=== PATIENT | female | born 1990 | race Caucasian/White ===

== ENCOUNTER 2022-02-24 08:40 | Outpatient (CLI) | payer BC ==
[2022-02-24] MEDS ORDERED: Iopamidol 300 61% 50 ML VIAL FS ONE (11:52)
== END 2022-02-24 08:41 | disposition home or self-care (01) ==
LOC: CSHRAD 08:40
PROVIDERS: ATTEND Obstetrics & Gynecology
DX: N97.1 Female infertility of tubal origin (principal)
CPT/HCPCS: 58340; 74740; Q9967

== ENCOUNTER 2022-12-08 16:45 | Inpatient (IN) | payer BC ==
[~2022-12-08 16:45] MED LIST: Bupivacaine 0.25% HCL 30 ML VIAL ONE
[2022-12-08] MEDS ORDERED: Promethazine HCl 25 MG/ML VIAL IM PRN (18:59)
[2022-12-08] MEDS ORDERED: Docusate 100 MG CAP PO PRN (18:59)
[2022-12-08] MEDS ORDERED: Carboprost 250 MCG/ML AMP IM PRN (18:59)
[2022-12-08] MEDS ORDERED: Acetaminophen 500 MG TAB PO PRN (18:59)
[2022-12-08] MEDS ORDERED: Butorphanol Tartrate 1 MG/ML VIAL SLOW IVP PRN (18:59)
[2022-12-08] MEDS ORDERED: hydrALAZINE 20 MG/ML VIAL SLOW IVP PRN (18:59)
[2022-12-08] MEDS ORDERED: Ondansetron PF 4 MG/2 ML Vial IVP PRN (18:59)
[2022-12-08] MEDS ORDERED: Zolpidem Tartrate 5 MG TAB PO PRN (18:59)
[2022-12-08] MEDS ORDERED: HYDROcodone/Acetaminophen 5/325 mg Tablet PO PRN ×2 (18:59)
[2022-12-08] MEDS ORDERED: Lidocaine 1% (PF) 30 ML VIAL SC PRN (18:59)
[2022-12-08] MEDS ORDERED: Misoprostol 200 MCG TAB PR PRN (18:59)
[2022-12-08] MEDS ORDERED: Ibuprofen 800 MG TAB PO PRN (18:59)
[2022-12-08] MEDS ORDERED: NS w/ Oxytocin 30 units 500 ML IV SCH ×3 (18:59)
[2022-12-08] MEDS ORDERED: Diphenoxylate HCl/Atropine Tablet PO PRN ×2 (18:59)
[2022-12-08 19:06] VITALS: BMI 31.9
[2022-12-08] MEDS: Lactated Ringer's 1,000 ML IV SCH (19:23)
[2022-12-08] MEDS ORDERED: Misoprostol 100 MCG TAB ONE (19:31)
[2022-12-08] MEDS: Misoprostol 100 MCG TAB VAG SCH (19:35)
[2022-12-08 20:06] LABS: Hematocrit 40.7 % (34.9-44.5); Hemoglobin 13.8 g/dL (12.0-15.5); Mean Corpuscular HGB CONC 33.9 g/dL (32.0-36.0); Mean Corpuscular Hemoglobin 29.7 pg (27.0-33.0); Mean Corpuscular Volume 87.7 fl (81.6-98.3); Mean Platelet Volume 11.8 fl (7.4-10.4); Platelet Count 224 10x3/uL (150-450); RBC Distribution Width 13.2 % (11.5-14.5); Red Blood Cell (RBC) Count 4.64 10x6/uL (3.90-5.03); White Blood Cell (WBC) Count 11.8 10x3/uL (3.5-10.5)
[2022-12-08 20:37] LABS: HBSAg Index 0.15 S/CO (0-0.99); HIV (1/2) Antibody/Antigen Non-Reactive (NonReactive); HIV 1/2 INDEX 0.05 S/CO (<1.00); Hep B Surf Ag - L&D Non-Reactive S/CO (NonReactive)
[2022-12-08 20:38] LABS: Syphilis Antibody Nonreactive (Nonreactive); Syphilis Antibody Index 0.04 S/CO (<1.00 Non-Reactive)
[2022-12-09] MEDS: Lactated Ringer's 1,000 ML IV SCH ×2 (00:37→20:03)
[2022-12-09] MEDS: Misoprostol 100 MCG TAB VAG SCH ×3 (00:38→04:53)
[2022-12-09] MEDS ORDERED: fentaNYL 50 mcg/mL 1 mL Vial ONE (00:42)
[2022-12-09] MEDS ORDERED: fentaNYL 50 mcg/mL 1 mL Vial SLOW IVP PRN (05:01)
[2022-12-09] MEDS ORDERED: fentaNYL/Ropivacaine Epidural 100 ML ONE (07:05)
[2022-12-09] MEDS ORDERED: Promethazine HCl 25 MG/ML VIAL IM PRN (07:49)
[2022-12-09] MEDS ORDERED: Lactated Ringer's 500 ML IV PRN (07:49)
[2022-12-09] MEDS ORDERED: Moisturizing Cream (Eucerin) 113 GM JAR TOP PRN (07:49)
[2022-12-09] MEDS ORDERED: ePHEDrine Sulfate 50 MG/10 ML VIAL SLOW IVP PRN (07:49)
[2022-12-09] MEDS ORDERED: Naloxone HCl 0.4 mg/ml Vial IVP PRN ×2 (07:49)
[2022-12-09] MEDS ORDERED: diphenhydrAMINE 50 MG/ML VIAL IVP PRN (07:49)
[2022-12-09] MEDS ORDERED: Acetaminophen 325 MG TAB PO PRN (07:49)
[2022-12-09] MEDS ORDERED: Ondansetron PF 4 MG/2 ML Vial IVP PRN (07:49)
[2022-12-09] MEDS ORDERED: fentaNYL 2 mcg/Ropivacaine 0.2% Epidural 100 ML CADD EPIDURAL SCH (08:00)
[2022-12-09] MEDS ORDERED: Communication Order-Pharmacy FS SCH (08:00)
[2022-12-09] MEDS ORDERED: Ampicillin 2 GM in Sodium Chloride 0.9% 100 ML IVPB SCH (23:59)
[2022-12-10] MEDS ORDERED: Ampicillin 2 GM VIAL ONE (00:02)
[2022-12-10] MEDS ORDERED: Acetaminophen 325 MG TAB PO PRN ×2 (00:05→00:41)
[2022-12-10] MEDS ORDERED: Lidocaine 1% (PF) 30 ML VIAL ONE (00:17)
[2022-12-10] MEDS ORDERED: HYDROcodone/Acetaminophen 5/325 mg Tablet PO PRN (00:40)
[2022-12-10] MEDS ORDERED: Benzocaine-Menthol 82.5 ML CAN TOP PRN (00:40)
[2022-12-10] MEDS ORDERED: Milk Of Magnesia 30 ML UDCUP PO PRN (00:40)
[2022-12-10] MEDS ORDERED: Ondansetron PF 4 MG/2 ML Vial IVP PRN (00:40)
[2022-12-10] MEDS ORDERED: Preparation H Ointment 28 GM TUBE PR PRN (00:40)
[2022-12-10] MEDS ORDERED: diphenhydrAMINE 25 MG CAP PO PRN (00:40)
[2022-12-10] MEDS ORDERED: Boostrix 0.5 ML (Tdap) VIAL (>/=7 yrs of age) IM ONE (00:40)
[2022-12-10] MEDS ORDERED: hydrALAZINE 20 MG/ML VIAL SLOW IVP PRN (00:40)
[2022-12-10] MEDS ORDERED: Misoprostol 200 MCG TAB VAG PRN (00:40)
[2022-12-10] MEDS ORDERED: Zolpidem Tartrate 5 MG TAB PO PRN ×2 (00:40→09:15)
[2022-12-10] MEDS ORDERED: Lanolin Ointment 7 GM TUBE TOP PRN (00:40)
[2022-12-10] MEDS ORDERED: Bisacodyl 10 MG SUPP PR PRN (00:40)
[2022-12-10] MEDS ORDERED: Witch Hazel-Glycerin 1 EACH JAR TOP PRN (00:41)
[2022-12-10] MEDS ORDERED: NS w/ Oxytocin 30 units 500 ML IV SCH (00:45)
[2022-12-10 00:57] LABS: RapidComm Collect By CBN; pH (Cord, venous) 7.251 (7.250-7.350)
[2022-12-10 01:01] LABS: RapidComm Collect By CBN
[2022-12-10] MEDS ORDERED: Ampicillin 2 GM in Sodium Chloride 0.9% 100 ML IVPB SCH ×2 (01:15→06:15)
[2022-12-10] MEDS: Ibuprofen 800 MG TAB PO SCH ×4 (01:46→21:54)
[2022-12-10] MEDS: Misoprostol 100 MCG TAB VAG SCH ×2 (03:55→03:56)
[2022-12-10] MEDS: Lactated Ringer's 1,000 ML IV SCH (03:55)
[2022-12-10] MEDS: HYDROcodone/Acetaminophen 5/325 mg Tablet PO PRN ×3 (05:01→18:13)
[2022-12-10 05:35] LABS: Hematocrit 41.1 % (34.9-44.5); Hemoglobin 13.9 g/dL (12.0-15.5); Mean Corpuscular HGB CONC 33.8 g/dL (32.0-36.0); Mean Corpuscular Hemoglobin 30.5 pg (27.0-33.0); Mean Corpuscular Volume 90.1 fl (81.6-98.3); Mean Platelet Volume 11.8 fl (7.4-10.4); Platelet Count 196 10x3/uL (150-450); RBC Distribution Width 13.3 % (11.5-14.5); Red Blood Cell (RBC) Count 4.56 10x6/uL (3.90-5.03); White Blood Cell (WBC) Count 25.5 10x3/uL (3.5-10.5)
[2022-12-10 05:58] LABS: MDiff Complete? YES
[2022-12-10] MEDS ORDERED: Ibuprofen 800 MG TAB PO SCH (06:00)
[2022-12-10] MEDS ORDERED: Ampicillin/Sulbactam 3 GM in Sodium Chloride 0.9% 100 ML IVPB SCH ×2 (06:00→12:00)
[2022-12-10 06:16] LABS: Platelet Adequacy Comment Appears Adequate
[2022-12-10 06:18] LABS: Band 7 % (5-11); Lymphocytes 8 % (21-51); Metamyelocyte 1 % (0-0); Monocytes 8 % (0-10); Neutrophil 76 % (42-75)
[2022-12-10 06:19] LABS: RBC Morph Comment Within Normal Limits
[2022-12-10] MEDS: Prenatal Vitamin 1 TAB PO SCH (08:23)
[2022-12-10] MEDS: Ferrous Sulfate 325 MG TAB PO SCH ×2 (08:23→14:31)
[2022-12-10] MEDS: Docusate 100 MG CAP PO SCH ×2 (08:24→21:54)
[2022-12-11] MEDS: Ibuprofen 800 MG TAB PO SCH ×3 (06:10→22:38)
[2022-12-11] MEDS: Ferrous Sulfate 325 MG TAB PO SCH ×2 (07:21→17:05)
[2022-12-11] MEDS: Docusate 100 MG CAP PO SCH ×2 (08:45→22:38)
[2022-12-11] MEDS: Prenatal Vitamin 1 TAB PO SCH (08:45)
[2022-12-11] MEDS: HYDROcodone/Acetaminophen 5/325 mg Tablet PO PRN (17:13)
[2022-12-12] MEDS: Ibuprofen 800 MG TAB PO SCH ×2 (06:09→13:38)
[2022-12-12 07:48] VITALS: BP 122/81; TEMP 98.3
[2022-12-12] MEDS: Ferrous Sulfate 325 MG TAB PO SCH (07:50)
[2022-12-12] MEDS: Docusate 100 MG CAP PO SCH (07:56)
[2022-12-12] MEDS: Prenatal Vitamin 1 TAB PO SCH (08:01)
== END 2022-12-12 14:50 | disposition home or self-care (01) | DRG 806 ==
LOC: CSHLD 18:11 → CSHPED 12-10 03:40
PROVIDERS: ADMIT Obstetrics & Gynecology; ATTEND Obstetrics & Gynecology
PROC: 10D07Z6 Extraction of Products of Conception, Vacuum, Via Natural or Artificial Opening (ICD-10-PCS; principal; 2022-12-10)
PROC: 10907ZC Drainage of Amniotic Fluid, Therapeutic from Products of Conception, Via Natural or Artificial Opening (ICD-10-PCS; 2022-12-10)
PROC: 0W8NXZZ Division of Female Perineum, External Approach (ICD-10-PCS; 2022-12-10)
PROC: 3E0P7VZ Introduction of Hormone into Female Reproductive, Via Natural or Artificial Opening (ICD-10-PCS; 2022-12-10)
PROC: 10H07YZ Insertion of Other Device into Products of Conception, Via Natural or Artificial Opening (ICD-10-PCS; 2022-12-10)
PROC: 4A133R1 Monitoring of Arterial Saturation, Peripheral, Percutaneous Approach (ICD-10-PCS; 2022-12-10)
DX: O24.420 Gestational diabetes mellitus in childbirth, diet controlled (principal); O75.2 Pyrexia during labor, not elsewhere classified; Z37.0 Single live birth; O36.5930 Maternal care for other known or suspected poor fetal growth, third trimester, not applicable or unspecified; Z3A.37 37 weeks gestation of pregnancy; Z88.1 Allergy status to other antibiotic agents
CPT/HCPCS: 36415; 36416; 51702; 82805; 85025; 85027; 86780; 86850; 86900; 86901; 87340; 87389; 88307; J0290; J0295; J2405; J2590; J3010; J3490; J7120; S0020